=== PATIENT | male | born 1980 | race African-American/Black ===

== ENCOUNTER → 2021-06-09 13:42 | Outpatient (CLI) | payer OTHER, SELFPAY ==
--- NOTE | 2021-06-09 13:49 | DI.ECHO.S_ITS ---
[place] [facility]---------+ [facility] +---------+ : : [address] : : : : [id number] : : : : Phone: [phone]+ Echocardiogram Report + + :Name: GUICHO WARREN Study Date: 06/09/2021 Height: 71 in : :[facility] ReadingLocation: Weight: 200 lb : : Gender: Male BSA: 2.1 m2 : :: 1980 Age: 41 yrs BP: 149/96 mmHg: :Reason For Study: ENCOUNTER FOR GENERAL ADULT EXAMINATION : :Ordering Physician: GEOVANNA, : :JULIANN Performed By: Ana Taylor : :Referring: JULIANN AUSTIN : + + Interpretation Summary The left ventricle is normal in size and wall thickness. The ejection fraction is estimated to be 60-65%. Diastolic parameters suggest probable normal left ventricular diastolic function and normal filling pressures. The right ventricle is normal in size and function. Both atria are normal in size. There is mild mitral valve prolapse. There is prolapse of the posterior mitral valve leaflet(s). There is mild mitral regurgitation. There is no other significant valvular heart disease. The aortic root is normal size. Procedure: A two-dimensional transthoracic echocardiogram with color flow and Doppler was performed. The study quality was technically adequate. There is no prior echocardiogram noted for this patient. The patient was in sinus rhythm with heart rates between 77-86 bpm during the exam. Left Ventricle: The left ventricle is normal in size and wall thickness. The ejection fraction is estimated to be 60-65%. Diastolic parameters suggest probable normal left ventricular diastolic function and normal filling pressures. Right Ventricle: The right ventricle is normal in size and function. Atria: Both atria are normal in size. There is no Doppler evidence for an interatrial shunt. Mitral Valve: There is mild mitral valve prolapse. There is prolapse of the posterior mitral valve leaflet(s). There is mild mitral regurgitation. Aortic Valve: The aortic valve is trileaflet. The aortic valve opens well. There is no aortic valve stenosis. No aortic regurgitation is present. Tricuspid Valve: The tricuspid valve is normal in structure and function. There is mild tricuspid regurgitation. Pulmonary artery pressures cannot be estimated because of the lack of a measurable TR jet velocity but the IVC suggests a CVP of around 3 mmHg. Pulmonic Valve: The pulmonic valve leaflets are thin and pliable; valve motion is normal. There is no other significant valvular heart disease. There is a trace or physiologic amount of pulmonic regurgitation. Great Vessels: The aortic root is normal size. The dimensions of the ascending aorta are normal. The IVC is of normal diameter and collapses greater than 50% with a sniff. This suggests a low right atrial pressure of 3 mm Hg. Pericardium/ Pleura There is no pericardial effusion. There is no pleural effusion. MMode/2D Measurements & Calculations LVIDd: 4.7 cm LVOT diam: 2.4 cm LVIDs: 3.0 cm Ao root diam: 3.2 cm FS: 35.9 % asc Aorta Diam: 3.0 cm IVSd: 1.0 cm Ao Arch Diam (Prox Trans): 2.6 cm LVPWd: 0.98 cm LV canas. diameter/BSA (cm/m^2): 2.3 LV sys. diameter/BSA (cm/m^2): 1.4 LA A2 area: 19.1 cm2 RA long axis: 5.0 cm LA A4 area: 18.8 cm2 RA area: 14.4 cm2 LA length (vol): 4.8 cm RA vol: 35.4 ml LA vol: 62.8 ml RA : 16.8 ml/m2 LA vol index: 29.8 ml/m2 IVC diam: 1.0 cm RVD1 (basal): 4.5 cm TAPSE: 2.0 cm Doppler Measurements & Calculations Ao V2 max: 105.9 cm/sec LVOT Max Matthew: 86.2 cm/sec Ao V2 mean: 82.2 cm/sec LV V1 max P.0 mmHg Ao max P.5 mmHg LV V1 VTI: 14.7 cm Ao mean P.9 mmHg ELMO(I,D): 3.2 cm2 Ao V2 VTI: 20.9 cm ELMO(V,D): 3.7 cm2 sev ratio: 0.70 ELMO indexed to BSA (cm^2/m^2): 1.5 MV E max matthew: 47.4 cm/sec PA V2 max: 97.9 cm/sec MV A max matthew: 35.5 cm/sec PA V2 mean: 67.6 cm/sec MV E/A: 1.3 PA mean P.1 mmHg Med Peak E' Matthew: 6.5 cm/sec PA pr(Accel): 29.3 mmHg E/E' med: 7.3 Lat Peak E' Matthew: 8.4 cm/sec E/E' lat: 5.6 E/e' average: 6.5 MV dec time: 0.24 sec SV(LVOT): 66.4 ml Reading Physician:05:20 PM
== END ==
PROVIDERS: Referring Provider Physician Assistant; Visit Provider Physician Assistant
DX: Z00.00 Encounter for general adult medical examination without abnormal findings (principal); I08.1 Rheumatic disorders of both mitral and tricuspid valves
CPT/HCPCS: 93306

== ENCOUNTER → 2021-06-09 13:49 | Outpatient (CLI) | payer OTHER, SELFPAY ==
--- NOTE | 2021-06-09 13:55 | DI.RAD.S_ITS ---
PROCEDURE: XR CHEST 2V INDICATIONS: Encounter for general adult medical examination wi TECHNIQUE: 2 views of the chest were acquired. COMPARISON: None. FINDINGS: Surgical changes and devices: None. Lungs and pleura: Lungs are clear. No pleural effusions or pneumothorax. Mediastinum: Mediastinal contours are normal. Heart size is normal. Bones and chest wall: No suspicious bony abnormalities. Soft tissues appear unremarkable. IMPRESSION: No acute cardiopulmonary disease. Dictated by: Houston Dyer [facility] Interpreted: Yenifer Vargas MD on 06/09/2021 at 14:05 Transcribed by: MARCIN on 06/09/2021 at 14:05 Approved by: Yenifer Vargas M.D. on 06/09/2021 at 18:55
== END ==
PROVIDERS: Referring Provider Physician Assistant; Visit Provider Physician Assistant
DX: Z00.00 Encounter for general adult medical examination without abnormal findings (principal)
CPT/HCPCS: 71046

== ENCOUNTER → 2022-01-30 09:25 | Outpatient (CLI) | payer OTHER, SELFPAY ==
--- NOTE | 2022-01-30 09:29 | DI.RAD.S_ITS ---
PROCEDURE: XR LUMBAR SPINE MIN 4V INDICATIONS: BACK PAIN TECHNIQUE: 5 views of the lumbar spine were acquired, including bilateral oblique views. COMPARISON: None. FINDINGS: Bones: 5 nonrib-bearing vertebrae are present. There is normal bony alignment. No vertebral body compression fractures. No suspicious bony lesions. Mild multilevel facet hypertrophy is seen. Soft tissues: Overlying bowel gas pattern is normal. No suspicious soft tissue calcifications. Oblique images: No pars defects. IMPRESSION: No acute osseous abnormality. Mild multilevel spondylosis. If the symptoms persist, consider cross sectional imaging such as MRI or CT for further assessment. Dictated by: Arie Cortés M.D. on 01/30/2022 at 10:11 Approved by: Arie Cortés M.D. on 01/30/2022 at 10:12
== END ==
PROVIDERS: PCP Family Medicine; Referring Provider Physical Medicine & Rehabilitation; Visit Provider Physical Medicine & Rehabilitation
DX: M47.816 Spondylosis without myelopathy or radiculopathy, lumbar region (principal)
CPT/HCPCS: 72110

== ENCOUNTER → 2022-02-28 09:52 | Outpatient (CLI) | payer OTHER, SELFPAY ==
--- NOTE | 2022-02-28 09:56 | DI.MRI.S_ITS ---
PROCEDURE: MR LUMBAR SPINE WO CON INDICATIONS: Left L4-5 radiculopathy TECHNIQUE: Noncontrast sagittal T1 spin echo and T2 fast echo, sagittal STIR, and T2 fast spin echo through the lumbar spine. In cases with scoliosis, additional coronal T2 fast spin echo may be performed. COMPARISON: [facility], CR, XR LUMBAR SPINE MIN 4V, 01/30/2022, 9:20. [facility] Outside Film, MR, MR LUMBAR SPINE WITHOUT CONTRAST, 11/18/2019, 11:50. FINDINGS: Image quality: Excellent. Alignment and Curvature: There is normal bony alignment. Bone Marrow: Marrow is of normal overall signal. No acute vertebral body compression fractures. Spinal Cord: Conus medullaris terminates at the L1 level. Visualized cord demonstrates normal signal and size. Paraspinous Soft Tissues: No paravertebral masses. T12-L1: Normal appearance. L1-L2: Normal appearance. L2-L3: Normal appearance. L3-L4: The disc height and disk signal are well-preserved. Mild generalized disc bulge is seen. Mild facet joint hypertrophy is seen. Mild to moderate bilateral neural foraminal narrowing can be seen, left worse than right. Mild central canal narrowing is seen. When comparison is made with the prior images, these findings are similar. L4-L5: The disc height is relatively well preserved. Mild loss of disc signal can be seen. Mild to moderate disc bulge is seen. Mild to moderate facet hypertrophy is seen. There is moderate to severe bilateral neural foraminal narrowing seen. There is a degree of compression seen upon the exiting nerve roots. Mild to moderate central canal narrowing is seen. When comparison is made with the prior images, these findings are similar. L5-S1: The disc height and disk signal are well-preserved. Mild generalized disc bulge is seen. Mild facet joint hypertrophy is seen. There is mild left-sided and no significant right-sided neural foraminal narrowing. No significant central canal narrowing is seen. When comparison is made with the prior images, these findings are similar. IMPRESSION: Focal premature lower lumbar spine degenerative changes are seen. When compared to the outside 2019 images, the degenerative changes are not significantly progressed. Dictated by: Michele Rivera M.D. on 02/28/2022 at 10:50 Approved by: Michele Rivera M.D. on 02/28/2022 at 10:53
== END ==
PROVIDERS: PCP Family Medicine; Referring Provider Physical Medicine & Rehabilitation; Visit Provider Physical Medicine & Rehabilitation
DX: M47.26 Other spondylosis with radiculopathy, lumbar region; M47.27 Other spondylosis with radiculopathy, lumbosacral region
CPT/HCPCS: 72148

== ENCOUNTER → 2022-03-21 10:08 | Outpatient (CLI) | payer OTHER, SELFPAY ==
[2022-03-21 12:35] LABS: COVID19 -Nasal RAPID Negative (Negative)
== END ==
PROVIDERS: PCP Family Medicine; Visit Provider Physical Medicine & Rehabilitation
DX: Z20.822 Contact with and (suspected) exposure to COVID-19 (principal)
CPT/HCPCS: 87635; C9803

== ENCOUNTER 2022-03-23 12:56 | Outpatient (CLI) | payer OTHER, SELFPAY ==
[2022-03-23] VITALS (8 sets, daily range): BP systolic 150–164; BP diastolic 90–105; PULSE 75–81; RESP 10–22; O2SAT 98–100
--- NOTE | 2022-03-23 13:01 | DI.RAD.S_ITS ---
PROCEDURE: PAIN L/S TRANSFORAMINAL INJECT INDICATIONS: SPONDYLOSIS COMPARISON: [facility], MR, MR LUMBAR SPINE WO CON, 02/28/2022, 10:46. [facility], CR, XR LUMBAR SPINE MIN 4V, 01/30/2022, 9:20. FINDINGS: Fluoroscopic spot filming was performed to verify placement of spinal needles at the left L4-L5 level(s), as labeled on the films. Appropriate location(s) of the needle tip(s) was confirmed by injection of iodinated contrast. IMPRESSION: Fluoroscopy for pain management. Dictated by: Ghassan Denis M.D. on 03/23/2022 at 15:15 Approved by: Ghassan Denis M.D. on 03/23/2022 at 15:16
[2022-03-23] MEDS: IOPAMIDOL 15 ML VIAL 3 ML INJ (14:05)
[2022-03-23] MEDS: DEXAMETHASONE 10 MG/ML VIAL 20 MG INJ (14:06)
[2022-03-23] MEDS: BETAMETHASONE 30 MG/5 ML MDV 6 MG INJ (14:06)
[2022-03-23] MEDS: BUPIVACAINE 0.25% (PF) VIAL 2 ML INJ (14:06)
[2022-03-23] MEDS: MIDAZOLAM 5 MG/5 ML VIAL IV (14:08)
--- NOTE | 2022-03-23 14:18 | P.PCN_ITS ---
Date/Time/Diagnoses Date of procedure: 03/23/22 Time of procedure: 14:19 Pre-procedure diagnosis: 1. FORAMINAL STENOSIS WITH LE SYMPTOMS Post-procedure diagnosis: same Procedure Notes Procedure: 1. FLUOROSCOPICALLY GUIDED CONTRAST CONTROLLED TRANSFORAMINAL EPIDURAL STEROID INJECTION - LEFT L4/5 Indications: Johnson is referred by Dr. Ordoñez for treatment of Foraminal Stenosis with Left LE Symptoms Physician: Marcus Palacio Total Fluoroscopy time (seconds): 18 Total sedation minutes: 15 Complications: none Procedure in detail & Post-procedure care: FINDINGS Foraminal Nerve Root Compression secondary to disc disease and facet hypertrophy DESCRIPTION OF PROCEDURE Following review of allergy and review of potential side effects and complications, including, but not necessarily limited to, infection, allergic reaction, local tissue breakdown, stroke, temporary or permanent nerve injury, paralysis, and possible , the patient indicated that the patient understood and agreed to proceed. An informed consent document was signed by the patient, witnessed by a nurse, and placed in the patient's chart. Additionally, other treatment options including medications, modalities, and physical therapy were reviewed with the patient. After review of previous anaesthesic history and IV conscious sedation the patient was deemed safe to proceed with today?s procedure with IV conscious sedation as ASA class II designation. Safety time-out was performed to confirm patient ID, procedure to be performed and site of procedure. IV sedation was accomplished with a combination of 3mg of Versed administered by the RN after DO order, titrated to patient comfort during the course of the procedure while the patient remained responsive to all verbal commands In the prone position following sterile prep and drape of the lumbar region, the left L4/5 posterior neuroforamen was identified fluoroscopically. The skin was anesthetized via a 25-gauge 1.5-inch needle with 1% lidocaine solution. At this point, a 25-gauge 3.5-inch spinal needle was atraumatically introduced and advanced under fluoroscopic guidance through the posterior left L4/5 neuroforamen to approximately the anterior aspect of the canal. Depth was confirmed on lateral view. Following negative aspiration, injection of approximately 1.5 cc of Isovue 200 under live fluoroscopy in the AP view confirmed excellent flow along the nerve root, into the epidural space without vascular or intrathecal uptake observed Radiological data, including multiple fluoroscopic views of the lumbosacral spine, reveal a spinal needle at the left L4/5 posterior neuroforamen. Subsequent views show flow of contrast material flowing superiorly and inferiorly along the nerve root confirming epidural flow. Subsequently, a test dose of 1.5 cc of 1% lidocaine solution was administered and patient was observed for two minutes for signs or symptoms of complications, including abdominal pain, shortness of breath, bilateral upper or lower extremity weakness, nausea and vomiting, prior to steroid injection. At this point, a total of 3cc or 20mg of dexamethasone and 6mg of betamethasone was injected without incident. The procedure tolerated the procedure well without signs or symptoms of complications prior to transfer to the recovery area continued monitoring without incident. The patient was then transferred to the recovery area where they were observed for an appropriate time after the injection. The patient reported a VAS score of 7 prior to the procedure and a post- procedure VAS of 0. POST OP INSTRUCTIONS The patient was provided a Pain Log to continue to record their response to the target-specific procedure prior to follow-up visit with their referring physician. Additionally, specific post-injection care instructions and a contact number to our office were provided if concerns arise regarding possible complications associated with the procedure are suspected.
== END 2022-03-23 14:39 | disposition home or self-care (01) ==
LOC: RAD 13:00
PROVIDERS: PCP Family Medicine; Referring Provider Physical Medicine & Rehabilitation; Visit Provider Physical Medicine & Rehabilitation
DX: M48.061 Spinal stenosis, lumbar region without neurogenic claudication (principal); M51.16 Intervertebral disc disorders with radiculopathy, lumbar region
CPT/HCPCS: 64483; 99152; J0702; J1100; J2250

== ENCOUNTER → 2022-06-07 09:31 | Outpatient (CLI) | payer OTHER, SELFPAY ==
--- NOTE | 2022-06-07 09:32 | DI.US.S_ITS ---
PROCEDURE: US SCROTUM INDICATIONS: 42-year-old male reports palpable fullness and pain in the left scrotum times several years. History of surgical varicocele repair 2017 TECHNIQUE: Real-time scanning was performed of the scrotum and testicles, with image documentation. Color and pulse Doppler interrogation was performed of both testicles. COMPARISON: None. FINDINGS: Right: Testicle is normal in size at 3.4 x 1.8 x 2.1 cm, and homogenous in echotexture other than several microcalcifications. Epididymis is normal in overall size and morphology. No hydrocele or varicoceles. Overlying scrotal skin is normal in thickness. Left: Testicle is normal in size at 3.4 x 1.6 x 2.0 cm, and homogeneous in echotexture other than several microcalcifications. 2 cm testicular cyst noted.. Epididymis is normal in overall size and morphology. No hydrocele . Positive varicocele. Overlying scrotal skin is normal in thickness. Doppler: Color and pulse Doppler demonstrate normal and symmetric arterial flow in both testicles. IMPRESSION: Positive left-sided varicocele. Bilateral testicular microlithiasis and small left testicular 2 mm cyst Approved by: Jamison Fowler M.D. on 06/07/2022 at 12:14
== END ==
PROVIDERS: PCP Family Medicine; Referring Provider Specialist; Visit Provider Specialist
DX: I86.1 Scrotal varices (principal); N44.2 Benign cyst of testis; N50.89 Other specified disorders of the male genital organs
CPT/HCPCS: 76870

== ENCOUNTER → 2022-07-10 10:10 | Outpatient (CLI) | payer OTHER, SELFPAY ==
[2022-07-10 10:49] LABS: COVID19 -Nasal RAPID Negative (Negative)
== END ==
PROVIDERS: PCP Family Medicine; Referring Provider Physical Medicine & Rehabilitation; Visit Provider Physical Medicine & Rehabilitation
DX: Z20.822 Contact with and (suspected) exposure to COVID-19 (principal)
CPT/HCPCS: 87635; C9803

== ENCOUNTER 2022-07-11 09:18 | Outpatient (CLI) | payer OTHER, SELFPAY ==
[2022-07-11] VITALS (8 sets, daily range): BP systolic 122–143; BP diastolic 69–95; PULSE 71–86; RESP 12–22; TEMP 36.4; O2SAT 99–100
--- NOTE | 2022-07-11 09:19 | DI.RAD.S_ITS ---
PROCEDURE: PAIN L/S TRANSFORAMINAL INJECT INDICATIONS: SPONDYLOSIS COMPARISON: [facility], , PAIN L/S TRANSFORAMINAL INJECT, 03/23/2022, 14:04. FINDINGS: Fluoroscopic spot filming was performed to verify placement of a spinal needle at the L4-L5 level, as labeled on the films. Appropriate location of the needle tip was confirmed by injection of iodinated contrast. IMPRESSION: Intraprocedural examination within normal limits. Dictated by: Michele Rivera M.D. on 07/11/2022 at 13:29 Approved by: Michele Rivera M.D. on 07/11/2022 at 13:29
[2022-07-11] MEDS: MIDAZOLAM 2 MG/2 ML VIAL IV (11:04)
[2022-07-11] MEDS: IOPAMIDOL 15 ML VIAL 3 ML INJ (11:06)
[2022-07-11] MEDS: BUPIVACAINE 0.25% (PF) VIAL 2 ML INJ (11:07)
[2022-07-11] MEDS: BETAMETHASONE 30 MG/5 ML MDV 6 MG INJ (11:07)
[2022-07-11] MEDS: DEXAMETHASONE 10 MG/ML VIAL 20 MG INJ (11:07)
--- NOTE | 2022-07-11 11:16 | P.PCN_ITS ---
Date/Time/Diagnoses Date of procedure: 07/11/22 Time of procedure: 11:16 Pre-procedure diagnosis: 1. FORAMINAL STENOSIS WITH LE SYMPTOMS Post-procedure diagnosis: same Procedure Notes Procedure: 1. FLUOROSCOPICALLY GUIDED CONTRAST CONTROLLED TRANSFORAMINAL EPIDURAL STEROID INJECTION - RIGHT L4/5 TFESI Indications: Tonya referred by Dr. Ordoñez for treatment of Foraminal Stenosis with Right LE Symptoms Physician: Marcus Palacio Total Fluoroscopy time (seconds): 8 Total sedation minutes: 8 Complications: none Procedure in detail & Post-procedure care: FINDINGS Foraminal Nerve Root Compression secondary to disc disease and facet hypertrophy DESCRIPTION OF PROCEDURE Following review of allergy and review of potential side effects and complications, including, but not necessarily limited to, infection, allergic reaction, local tissue breakdown, stroke, temporary or permanent nerve injury, paralysis, and possible , the patient indicated that the patient understood and agreed to proceed. An informed consent document was signed by the patient, witnessed by a nurse, and placed in the patient's chart. Additionally, other treatment options including medications, modalities, and physical therapy were reviewed with the patient. After review of previous anaesthesic history and IV conscious sedation the patient was deemed safe to proceed with today?s procedure with IV conscious sedation as ASA class II designation. Safety time-out was performed to confirm patient ID, procedure to be performed and site of procedure. IV sedation was accomplished with a combination of 2mg of Versed was administered by the RN after DO order, titrated to patient comfort during the course of the procedure while the patient remained responsive to all verbal commands In the prone position following sterile prep and drape of the lumbar region, the right L4/5 posterior neuroforamen was identified fluoroscopically. The skin was anesthetized via a 25-gauge 1.5-inch needle with 1% lidocaine solution. At this point, a 25-gauge 3.5-inch spinal needle was atraumatically introduced and advanced under fluoroscopic guidance through the posterior right L4/5 neuroforamen to approximately the anterior aspect of the canal. Depth was confirmed on lateral view. Following negative aspiration, injection of approximately 1.5cc of Isovue 200 under live fluoroscopy in the AP view confir med excellent flow along the nerve root, into the epidural space without vascular or intrathecal uptake observed Radiological data, including multiple fluoroscopic views of the lumbosacral spine, reveal a spinal needle at the right L4/5 posterior neuroforamen. Subsequent views show flow of contrast material flowing superiorly and inferiorly along the nerve root confirming epidural flow. Subsequently, a test dose of 1.5 cc of 1% lidocaine solution was administered and patient was observed for two minutes for signs or symptoms of complications, including abdominal pain, shortness of breath, bilateral upper or lower extremity weakness, nausea and vomiting, prior to steroid injection. At this point, a total of 3cc or 20mg of dexamethasone and 6mg of betamethasone was injected without incident. The procedure tolerated the procedure well without signs or symptoms of complications prior to transfer to the recovery area continued monitoring without incident. The patient was then transferred to the recovery area where they were observed for an appropriate time after the injection. The patient reported a VAS score of 7 prior to the procedure and a post- procedure VAS of 0. POST OP INSTRUCTIONS The patient was provided a Pain Log to continue to record their response to the target-specific procedure prior to follow-up visit with their referring phys ician. Additionally, specific post-injection care instructions and a contact number to our office were provided if concerns arise regarding possible complications associated with the procedure are suspected.
== END 2022-07-11 11:35 | disposition home or self-care (01) ==
LOC: RAD 09:19
PROVIDERS: PCP Family Medicine; Referring Provider Physical Medicine & Rehabilitation; Visit Provider Physical Medicine & Rehabilitation
DX: M48.061 Spinal stenosis, lumbar region without neurogenic claudication (principal); M51.16 Intervertebral disc disorders with radiculopathy, lumbar region
CPT/HCPCS: 64483; J0702; J1100; J2250; J3490

== ENCOUNTER 2023-04-12 15:04 | Outpatient (CLI) | payer OTHER, SELFPAY ==
[2023-04-12] VITALS (10 sets, daily range): BP systolic 127–159; BP diastolic 66–88; PULSE 76–88; RESP 12–18; TEMP 36.4; O2SAT 95–100
--- NOTE | 2023-04-12 15:06 | DI.RAD.S_ITS ---
PROCEDURE: PAIN L/S FACET INJ/BLK 1ST JADIEL COMPARISON: None. INDICATIONS: SPONDYLOSIS FINDINGS: Fluoroscopic spot filming was performed to verify placement of spinal needles at the right L4-5 and right L5-S1 level(s), as labeled on the films. Appropriate location(s) of the needle tip(s) was confirmed by injection of iodinated contrast. IMPRESSION: Fluoroscopic guidance for lumbar facet joint injections. Please see procedural note for further details. Dictated by: Bobby Velasquez M.D. on 04/12/2023 at 16:29 Approved by: Bobby Velasquez M.D. on 04/12/2023 at 16:30
[2023-04-12] MEDS: MIDAZOLAM 2 MG/2 ML VIAL IV ×2 (15:52→16:00)
[2023-04-12] MEDS: IOPAMIDOL 15 ML VIAL 3 ML INJ (15:55)
[2023-04-12] MEDS: BETAMETHASONE 30 MG/5 ML MDV 12 MG INJ (15:55)
[2023-04-12] MEDS: BUPIVACAINE 0.5% (PF) 10 ML VIAL 5 ML INJ (15:55)
[2023-04-12] MEDS: LIDOCAINE 1% 20 ML 5 ML INJ (15:58)
--- NOTE | 2023-04-12 16:12 | P.PCN_ITS ---
Date/Time/Diagnoses Date of procedure: 04/12/23 Time of procedure: 16:12 Pre-procedure diagnosis: 1. FACET ARTHROPATHY 2. AXIAL LBP 3. MULTILEVEL DDD Post-procedure diagnosis: same Procedure Notes Procedure: 1. FLUOROSCOPICALLY GUIDED CONTRAST CONTROLLED FACET JOINT INJECTIONS BILATERAL L4/5, L5/S1 Indications: Johnson is referred by Dr. Ordoñez for treatment of Axial LBP Physician: Marcus Palacio Total Fluoroscopy time (seconds): 10 Total sedation minutes: 13 Complications: none Procedure in detail & Post-procedure care: FINDINGS Multilevel Facet Arthropathy with Clinically significant axial LBP DESCRIPTION OF PROCEDURE Fluoroscopically guided, contrast-controlled bilateral L4/5, L5/S1 facet joint injections. Following review of allergy and review of potential side effects and complications, including, but not necessarily limited to, infection, allergic reaction, local tissue breakdown, stroke, temporary or permanent nerve injury, paralysis, and possible , the patient indicated that the patient understood and agreed to proceed. An informed consent document was signed by the patient, witnessed by a nurse, and placed in the patient's chart. Additionally, other treatment options including medications, modalities, and physical therapy were reviewed with the patient. After review of previous anaesthesic history and IV conscious sedation the patient was deemed safe to proceed with today?s procedure with IV conscious sedation as ASA class II designation. Safety time-out was performed to confirm patient ID, procedure to be performed and site of procedure. IV sedation was accomplished with a combination of 4mg of Versed was administered by the RN after DO order, titrated to patient comfort during the course of the procedure while the patient remained responsive to all verbal commands In the prone position, following sterile prep and drape of the lumbar region, the posterior aspect of the L4/5, L5/S1 facet joints were identified fluoroscopically. The skin was anesthetized via a 25-gauge 1.5inch needle with 1% lidocaine solution into the corresponding facet joints. At this point, a 22- gauge 3.5-inch spinal needle was atraumatically introduced and advanced under fluoroscopic guidance into the corresponding facet joints. Following negative aspiration, injections of approximately 0.2cc of Isovue 200 confirmed interarticular placement without vascular uptake. The identical procedure was then performed at the L4/5, L5/S1 facet joints on the left. Radiological data, including multiple fluoroscopic views of the lumbosacral spine, reveal a spinal needle at the L4/5, L5/S1 facet joints bilaterally. Subsequent views show flow of contrast material both superiorly and inferiorly within the joint space without vascular or intrathecal uptake. At this point, a total of 0.5cc including a mixture of 0.25cc Marcaine and 0.25cc betamethasone was injected without complication into each of the corresponding facet joints. The patient tolerated the procedure well without signs or symptoms of complications prior to transfer to the recovery area continued monitoring without incident. The patient was then transferred to the recovery area where they were observed for an appropriate period of time after the injection. The patient reported a VAS score of 7 prior to the procedure and a post- procedure VAS of 0. POST OP INSTRUCTIONS The patient was provided a Pain Log to continue to record their response to the target-specific procedure prior to follow-up visit with their referring physician. Additionally, specific post-injection care instructions and a contact number to our office were provided if concerns arise regarding possible complications associated with the procedure are suspected.
== END 2023-04-12 16:30 | disposition home or self-care (01) ==
LOC: RAD 15:05
PROVIDERS: PCP Family Medicine; Referring Provider Physical Medicine & Rehabilitation; Visit Provider Physical Medicine & Rehabilitation
DX: M47.9 Spondylosis, unspecified (principal)
CPT/HCPCS: 64493; 64494; 99152; J0702; J2250

== ENCOUNTER 2023-06-21 14:15 | Outpatient (CLI) | payer OTHER, SELFPAY ==
[2023-06-21] VITALS (8 sets, daily range): BP systolic 117–140; BP diastolic 68–90; PULSE 70–86; RESP 11–18; TEMP 36.6; O2SAT 98–100
--- NOTE | 2023-06-21 14:16 | DI.RAD.S_ITS ---
PROCEDURE: PAIN L/S FACET INJ/BLK 1ST JADIEL COMPARISON: [facility], , PAIN L/S FACET INJ/BLK 1ST JADIEL, 04/12/2023, 15:55. INDICATIONS: SPONDYLOSIS FINDINGS: Fluoroscopic spot filming was performed to verify placement of spinal needles on both sides at the L4, L5, and S1 levels, as labeled on the films. Appropriate location of the needle tips was confirmed by injection of iodinated contrast. IMPRESSION: Intraprocedural examination demonstrating appropriate positions of the needles. Dictated by: Michele Rivera M.D. on 06/21/2023 at 15:42 Approved by: Michele Rivera M.D. on 06/21/2023 at 15:42
[2023-06-21] MEDS: MIDAZOLAM 2 MG/2 ML VIAL IV (15:20)
[2023-06-21] MEDS: LIDOCAINE 1% 20 ML 5 ML INJ (15:28)
[2023-06-21] MEDS: BUPIVACAINE 0.5% (PF) 10 ML VIAL 5 ML INJ (15:28)
[2023-06-21] MEDS: IOPAMIDOL 15 ML VIAL 3 ML INJ (15:28)
--- NOTE | 2023-06-21 15:41 | PM.PROC.IR.1 ---
Date/Time/Diagnoses Date of procedure: 06/21/23 Time of procedure: 15:42 Pre-procedure diagnosis: 1. FACET ARTHROPATHY Post-procedure diagnosis: same Procedure Notes Procedure: 1. BILATERAL- L4, L5 and S1 DIAGNOSTIC MB BLOCKS with LA Anesthetic Indications: Johnson is referred by Dr. Ordoñez for treatment of Bilateral Axial LBP. Physician: Marcus Palacio Total Fluoroscopy time (seconds): 16 Total sedation minutes: 17 Complications: none Procedure in detail & Post-procedure care: DESCRIPTION OF PROCEDURE Fluoroscopically guided, contrast-controlled bilateral L4, L5 and S1 medial branch blocks with 0.5cc of 0.5% Marcaine. Following review of allergy and review of potential side effects and complications, including, but not necessarily limited to, infection, allergic reaction, local tissue breakdown, nerve injury, paralysis, stroke and possible , the patient indicated that the patient understood and agreed to proceed. An informed consent document was signed by the patient, witnessed by a nurse, and placed in the patient's chart. After review of previous anaesthesic history and IV conscious sedation the patient was deemed safe to proceed with today's procedure with IV conscious sedation as ASA class II designation. Safety time-out was performed to confirm patient ID, procedure to be performed and site of procedure. IV sedation was accomplished with a combination of 2mg of Versed was administered by the RN after DO order, titrated to patient comfort during the course of the procedure while the patient remained responsive to all verbal commands In the prone position, following sterile prep and drape of the lumbar region, the right L4, L5 and S1 anatomical location of the medial branch of the dorsal ramus was identified fluoroscopically. Subsequently an anesthetic skin wheal using 1% lidocaine solution was initiated at each of the anatomical spots. Subsequently then a 22-gauge 3.5-inch spinal needle was atraumatically introduced and advanced under fluoroscopic guidance at each of the corresponding sites at the right L4, L5 and S1 MB. After negative aspiration, 0.2cc of Isovue 200 was injected, confirming placement without vascular or intrathecal uptake. Subsequently then 0.5cc of 0.5% Marcaine solution was injected at each of the corresponding sites at the right L4, L5 and S1 medial branch locations. The identical procedure was replicated on the left. The patient tolerated the procedure well without signs or symptoms of complications prior to transfer to the recovery area continued monitoring without incident. Post-procedure, the patient was monitored initiating provocative activities to measure the amount of relief from block of the facetogenic pain. The patient reported a VAS of 7 prior to the procedure and a post-procedure VAS of 1. It has been a pleasure to assist in the diagnostic and therapeutic care of your patient. POST OP INSTRUCTIONS The patient was provided with a Pain Log to complete over the next several hours and subsequent days prior to the patient's follow up with the ordering physician. If the patient has wireless sales associate relief to the solution applied, then they may be a candidate for medial branch rhizotomy. The patient is aware, was provided, once again, with a Pain Log and will follow up with the referring physician for review and clinical correlation
== END 2023-06-21 15:57 | disposition home or self-care (01) ==
PROVIDERS: PCP Family Medicine; Referring Provider Physical Medicine & Rehabilitation; Visit Provider Physical Medicine & Rehabilitation
DX: M47.816 Spondylosis without myelopathy or radiculopathy, lumbar region (principal); M47.817 Spondylosis without myelopathy or radiculopathy, lumbosacral region
CPT/HCPCS: 64493; 64494; 99152; J2250

== ENCOUNTER 2024-05-06 15:17 | Outpatient (CLI) | payer OTHER, SELFPAY ==
[2024-05-06] VITALS (9 sets, daily range): BP systolic 114–130; BP diastolic 59–90; PULSE 66–80; RESP 8–18; TEMP 36.8; O2SAT 97–100
--- NOTE | 2024-05-06 16:00 | DI.RAD.S_ITS ---
PROCEDURE: PAIN L/S FACET INJ/BLK 1ST JADIEL INDICATIONS: Bilateral L4, L5 and S1 MB SA COMPARISON: [facility], XA, PAIN L/S FACET INJ/BLK 1ST JADIEL, 06/21/2023, 15:24. [facility], XA, PAIN L/S FACET INJ/BLK 1ST JADIEL, 04/12/2023, 15:55. FINDINGS: Fluoroscopic spot filming was performed to verify placement of spinal needles at the L4-S1 level(s), as labeled on the films. Appropriate location(s) of the needle tip(s) was confirmed by injection of iodinated contrast. IMPRESSION: Fluoroscopic guided L4-S1 facet injection. Dictated by: Jennie Le M.D. on 05/07/2024 at 9:56 Approved by: Jennie Le M.D. on 05/07/2024 at 9:56
[2024-05-06] MEDS: MIDAZOLAM 2 MG/2 ML VIAL IV (16:49)
[2024-05-06] MEDS: LIDOCAINE 1% 20 ML 5 ML INJ (16:55)
[2024-05-06] MEDS: iopamidoL 15 ML VIAL 3 ML INJ (16:55)
[2024-05-06] MEDS: LIDOCAINE 2% INJ SDV 5ML 10 ML INJ (16:56)
--- NOTE | 2024-05-06 17:09 | PM.PROC.IR.1 ---
Date/Time/Diagnoses Date of procedure: 05/06/24 Time of procedure: 17:09 Pre-procedure diagnosis: 1. FACET ARTHROPATHY Post-procedure diagnosis: same Procedure Notes Procedure: 1. BILATERAL- L4, L5 and S1 DIAGNOSTIC MB BLOCKS with SA Anesthetic Indications: Johnson is referred by Dr. Ordoñez for treatment of Bilateral Axial LBP. Physician: Marcus Palacio Total Fluoroscopy time (seconds): 8 Total sedation minutes: 16 Complications: none Procedure in detail & Post-procedure care: DESCRIPTION OF PROCEDURE Fluoroscopically guided, contrast-controlled bilateral L4, L5 and S1 medial branch blocks with 0.5cc of 2% Lidocaine. Following review of allergy and review of potential side effects and complications, including, but not necessarily limited to, infection, allergic reaction, local tissue breakdown, nerve injury, paralysis, stroke and possible , the patient indicated that the patient understood and agreed to proceed. An informed consent document was signed by the patient, witnessed by a nurse, and placed in the patient's chart. After review of previous anaesthesic history and IV conscious sedation the patient was deemed safe to proceed with today's procedure with IV conscious sedation as ASA class II designation. Safety time-out was performed to confirm patient ID, procedure to be performed and site of procedure. IV sedation was accomplished with a combination of 3mg of Versed was administered by the RN after DO order, titrated to patient comfort during the course of the procedure while the patient remained responsive to all verbal commands In the prone position, following sterile prep and drape of the lumbar region, the right L4, L5 and S1 anatomical location of the medial branch of the dorsal ramus was identified fluoroscopically. Subsequently an anesthetic skin wheal using 1% lidocaine solution was initiated at each of the anatomical spots. Subsequently then a 22-gauge 3.5-inch spinal needle was atraumatically introduced and advanced under fluoroscopic guidance at each of the corresponding sites at the right L4, L5 and S1 MB. After negative aspiration, 0.2cc of Isovue 200 was injected, confirming placement without vascular or intrathecal uptake. Subsequently then 0.5cc of 2% Lidocaine solution was injected at each of the corresponding sites at the right L4, L5 and S1 medial branch locations. The identical procedure was replicated on the left. The patient tolerated the procedure well without signs or symptoms of complications prior to transfer to the recovery area continued monitoring without incident. Post-procedure, the patient was monitored initiating provocative activities to measure the amount of relief from block of the facetogenic pain. The patient reported a VAS of 7 prior to the procedure and a post-procedure VAS of 1. It has been a pleasure to assist in the diagnostic and therapeutic care of your patient. POST OP INSTRUCTIONS The patient was provided with a Pain Log to complete over the next several hours and subsequent days prior to the patient's follow up with the ordering physician. If the patient has research microbiologist relief to the solution applied, then they may be a candidate for medial branch rhizotomy. The patient is aware, was provided, once again, with a Pain Log and will follow up with the referring physician for review and clinical correlation
--- NOTE | 2024-05-07 15:14 | PC.NURSE ---
1514 post procedure call made. No answer. patient advised to call the clinic if he has any questions or concerns at the number that is on his discharge form.
== END 2024-05-06 17:20 | disposition home or self-care (01) ==
LOC: RAD 15:17
PROVIDERS: PCP Family Medicine; Referring Provider Physical Medicine & Rehabilitation; Visit Provider Physical Medicine & Rehabilitation
DX: M47.816 Spondylosis without myelopathy or radiculopathy, lumbar region (principal); M47.817 Spondylosis without myelopathy or radiculopathy, lumbosacral region
CPT/HCPCS: 64493; 64494; 99152; J2250

== ENCOUNTER 2024-07-03 10:43 | Outpatient (CLI) | payer OTHER, SELFPAY ==
[2024-07-03] VITALS (20 sets, daily range): BP systolic 92–162; BP diastolic 49–112; PULSE 60–85; RESP 9–18; TEMP 36; O2SAT 97–100
--- NOTE | 2024-07-03 11:00 | DI.RAD.S_ITS ---
PROCEDURE: PAIN L/S MED/LAT N RFA BILAT INDICATIONS: BILATERAL L4, L5, S1 MB RFA COMPARISON: None. FINDINGS: Fluoroscopic spot filming was performed to verify placement of spinal needles at the bilateral L4, L5, and S1 level(s), as labeled on the films. Appropriate location(s) of the needle tip(s) was confirmed by injection of iodinated contrast. IMPRESSION: Intraoperative fluoroscopy for bilateral L4 through S1 medial branch RFA. Dictated by: Rosa Oliveira M.D. on 07/04/2024 at 20:04 Approved by: Rosa Oliveira M.D. on 07/04/2024 at 20:05
[2024-07-03] MEDS: MIDAZOLAM 2 MG/2 ML VIAL 1 MG IV (11:24)
[2024-07-03] MEDS: SODIUM CHLORIDE 0.9% 500 ML 1000 ML IV (11:24)
[2024-07-03] MEDS: LIDOCAINE 1% 20 ML 5 ML INJ (11:30)
[2024-07-03] MEDS: BUPIVACAINE 0.5% (PF) 10 ML VIAL 5 ML INJ (11:30)
[2024-07-03] MEDS: LIDOCAINE 1% (PF) 5 ML INJ (11:57)
--- NOTE | 2024-07-03 12:11 | P.PCN_ITS ---
Date/Time/Diagnoses Date of procedure: 07/03/24 Time of procedure: 12:11 Pre-procedure diagnosis: 1. RECALCITRANT FACET ARTHROPATHY Post-procedure diagnosis: same Procedure Notes Procedure: 1. BILATERAL L4 AND L5 MEDIAL BRANCH RADIOFREQUENCY NEUROTOMY AND S1 DORSAL RAMUS BRANCH RADIOFREQUENCY NEUROTOMY Indications: Johnson is referred by Dr. Ordoñez for treatment of facet arthropathy. Physician: Marcus Palacio Total Fluoroscopy time (seconds): 18 Total sedation minutes: 40 Complications: none Procedure in detail & Post-procedure care: DESCRIPTION OF PROCEDURE Bilateral L4 and L5 medial branch radiofrequency neurotomy and bilateral S1 dorsal ramus radiofrequency neurotomy under fluoroscopy with conscious sedation. The patient is well known to this clinic having undergone previous facet injections with good but temporary relief. The patient has experienced appropriate, concordant relief with previous facet and median branch blocks but the patient's pain has been recalcitrant to further conservative measures. Therefore, based upon the patient's relief and persistent symptoms, the patient is considered an appropriate candidate for facet rhizotomy. All of the patient's questions regarding the risks versus benefits of the procedure, including, but not limited to, bleeding, infection, temporary as well as lasting nerve injury, paralysis, stroke, and , as well treatment alternatives were answered to satisfaction. After obtaining informed consent, denial of pertinent drug allergies, as well as being made aware of the potential risks of bleeding, infection, spinal cord trauma, paralysis, temporary and permanent nerve damage, seizure, stroke, and possible , the patient was brought to the fluoroscopy suite and positioned prone on the fluoroscopy table. The lumbar region was prepped in usual sterile fashion and covered with a fenestrated drape in the usual sterile fashion. Appropriate monitors applied including pulse oximeter, pulse, and blood pressure for regular monitoring throughout the procedure. After review of previous anaesthesic history and IV conscious sedation the patient was deemed safe to proceed with today's procedure with IV conscious sedation as ASA class II designation. Safety time-out was performed to confirm patient ID, procedure to be performed and site of procedure. IV sedation was accomplished with a combination of 2mg of Versed administered by the RN after DO order, titrated to patient comfort during the course of the procedure while the patient remained responsive to all verbal commands. After local infiltration using 1% lidocaine, under fluoroscopic guidance, a 10- cm RF insulated needle with a 10-mm active tip was positioned parallel to the junction of the right sacral ala and the superior articulating process where the S1 dorsal ramus resides. Needle placement was confirmed with motor stimulation of .5v on the right which produced local stimulation without radicular component. The stimulation was then increased to 2v with, once again, only local multifidus stimulation without radicular component. The needle was then removed and the identical procedure was performed along the length of the right L5 medial branch with motor stimulation at .7v on the right. The identical procedure was once again performed along the length of the right L4 medial branch with motor stimulation of .5v on the right. The medial branches were then anesthetised with 0.5% Marcaine. This was then followed by two discreet lesions performed at 80 degrees Celsius for 90 seconds each. The identical procedure was repeated on the left. The patient tolerated the procedure well without signs or symptoms of complications prior to transfer to the recovery area continued monitoring without incident. The patient was then transferred to the recovery area where they were observed for an appropriate period of time after the injection. The patient reported a VAS score of 9 prior to the procedure and a post-procedure VAS of 0. POST OP INSTRUCTIONS The patient was provided a Pain Log to continue to record the patient's response to the target-specific procedure prior to the patient's follow-up visit with the referring physician. Additionally, specific post-injection care instructions and a contact number to our office were provided if concerns arise regarding possible complications associated with the procedure are suspected.
[2024-07-03] MEDS: HYDROCODONE/ACET 5/325 TABLET 1 TAB PO (12:30)
--- NOTE | 2024-07-03 14:21 | PC.NURSE ---
Patient returned to post procedure room noted to have increased pain 8/10 to bilateral lower back described as tightness. Applied warm blanket, pt declines feet up. Patient stood at chair continues to have discomfort denies any pain or weakness to BLE but just pain localized around injection sites. MD down to assess pt continues to have pain 7-8/10 see pain chart. Received verbal order to administer 1 tab Hydrocodone 5/325 orally. See MAR. Patient continues to decline feet up but is restless, ice pack applied. Patient reports that the he feels the ice was helping, appears less restless and less facial grimacing. brought back to room, patient stood and walked around the room and reports he still has pain 7/10 but that is is better standing and walking then sitting down. Patient states I am starting to feel better and will be good to go home and walk around, Denies any weakness to BLE, denies any dizziness or lightheaded. Pt and spouse informed of tramadol RX sent to [facility] per Dr Palacio. Patient ambulated from procedure room to car at main entrance with out any difficulties. Pt and instructed to call clinic with any questions or concerns. Spoke with Dee LARES at DR Gamble office with update on pt and d/c home.
== END 2024-07-03 13:08 | disposition home or self-care (01) ==
LOC: RAD 10:43
PROVIDERS: PCP Family Medicine; Referring Provider Physical Medicine & Rehabilitation; Visit Provider Physical Medicine & Rehabilitation
DX: M47.816 Spondylosis without myelopathy or radiculopathy, lumbar region (principal); M47.817 Spondylosis without myelopathy or radiculopathy, lumbosacral region
CPT/HCPCS: 64635; 64636; 99152; 99153; J2250

== ENCOUNTER 2025-01-20 11:55 | Outpatient (CLI) | payer OTHER, SELFPAY ==
[2025-01-20] VITALS (8 sets, daily range): BP systolic 127–153; BP diastolic 62–83; PULSE 61–77; RESP 14–16; TEMP 36.7; O2SAT 98–100
--- NOTE | 2025-01-20 11:58 | DI.RAD.S_ITS ---
PROCEDURE: PAIN L INTERLAMINAR/CAUDAL INJ INDICATIONS: L 4/5 TL JAM COMPARISON: None. FINDINGS/IMPRESSION: Fluoroscopic spot filming was performed to verify placement of spinal needles at the L4-L5 level(s), as labeled on the films. Appropriate location(s) of the needle tip(s) was confirmed by injection of iodinated contrast. Dictated by: Paige Chavarria MD, PhD on 01/21/2025 at 10:20 Approved by: Paige Chavarria MD, PhD on 01/21/2025 at 10:25
[2025-01-20] MEDS: MIDAZOLAM 2 MG/2 ML VIAL IV (13:54)
[2025-01-20] MEDS: BUPIVACAINE 0.25% (PF) VIAL 2 ML INJ (14:02)
[2025-01-20] MEDS: DEXAMETHASONE 10 MG/ML VIAL 20 MG INJ (14:03)
[2025-01-20] MEDS: iopamidoL 15 ML VIAL 3 ML INJ (14:03)
[2025-01-20] MEDS: BETAMETHASONE 30 MG/5 ML MDV 12 MG INJ (14:04)
--- NOTE | 2025-01-20 14:12 | P.PCN_ITS ---
Date/Time/Diagnoses Date of procedure: 01/20/25 Time of procedure: 14:13 Pre-procedure diagnosis: 1. HNP WITH RADICULAR FEATURES, 2. MULTILEVEL CENTRAL STENOSIS, Post-procedure diagnosis: same Procedure Notes Procedure: 1. FLUOROSCOPICALLY GUIDED CONTRAST CONTROLLED INTERLAMINAR EPIDURAL STEROID INJECTION - L5/S1 Indications: oJhnson is referred by Dr. Ordoñez for treatment of Bilateral Foraminal Stenosis L>R LE symptoms. Physician: Marcus Palacio Total Fluoroscopy time (seconds): 8 Total sedation minutes: 12 Complications: none Procedure in detail & Post-procedure care: FINDINGS Multilevel Central Spinal Stenosis with Nerve Root Compression DESCRIPTION OF PROCEDURE Fluoroscopically guided, contrast-controlled L5/S1 translaminar epidural steroid injection. Following review of allergy and review of potential side effects and complications, including, but not necessarily limited to, infection, allergic reaction, local tissue breakdown, temporary as well as permanent nerve injury, paralysis, stroke and possible , the patient indicated that the patient understood and agreed to proceed. An informed consent document was signed by the patient, witnessed by a nurse, and placed in the patient's chart. Additionally, other treatment options including modalities, medications, and physical therapy were reviewed with the patient. After review of previous anaesthesic history and IV conscious sedation the patient was deemed safe to proceed with today?s procedure with IV conscious sedation as ASA class II designation. Safety time-out was performed to confirm p atient ID, procedure to be performed and site of procedure. IV sedation was accomplished with a combination of 2mg of Versed administered by the RN after DO order, titrated to patient comfort during the course of the procedure while the patient remained responsive to all verbal commands. In the prone position, following sterile prep and drape of the lumbar region, the L5/S1 translaminar space was identified fluoroscopically. The skin was anesthetized via a 25-gauge, 1.5-inch needle with 1% lidocaine solution. At this point, a 22-gauge short bevel spinal needle was atraumatically introduced and advanced under fluoroscopic guidance into the region of the L5/S1 translaminar space. Depth was confirmed on lateral view. Radiological data, including multiple fluoroscopic views of the lumbar spine, reveal a spinal needle at the L5/S1 translaminar space. Lateral views then show placement of the needle in the epidural space. Subsequent views show contrast material flowing superiorly and inferiorly in the epidural space. No vascular or intrathecal uptake is observed. At this point, using loss of resistance technique with saline and air, the epidural space was entered. This was confirmed following negative aspiration with injection of approximately 1.5cc of Isovue 200, showing excellent epidural flow without vascular or intrathecal uptake. At this point, 1 cc of 1% lidocaine solution combined with 3cc or 10mg of dexamethasone and 12mg of betamethasone was injected without incident. The patent tolerated the procedure without signs of symptoms of complications prior to transfer to the recovery area for further monitoring. The patient was then transferred to the recovery area where they were observed for an appropriate period of time after the injection. The patient reported a VAS score of 6 prior to the procedure and a post-procedure VAS of 0. POST OP INSTRUCTIONS The patient was provided a Pain Log to continue to record their response to the target-specific procedure prior to follow-up visit with their referring physician. Additionally, specific post-injection care instructions and a contact number to our office were provided if concerns arise regarding possible complications associated with the procedure are suspected.
--- NOTE | 2025-01-20 14:20 | EKG_ITS ---
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
--- NOTE | 2025-01-20 14:49 | PC.NURSE ---
Intraprocedure it was noted pt had slight ST elevation on the 3 lead CM. Pt denied any chest pain or any other complaints. Dr. Palacio made aware and EKG ordered in recovery. VSS, A&Ox4.
== END 2025-01-20 14:39 | disposition home or self-care (01) ==
PROVIDERS: PCP Family Medicine; Referring Provider Physical Medicine & Rehabilitation; Visit Provider Physical Medicine & Rehabilitation
DX: M51.17 Intervertebral disc disorders with radiculopathy, lumbosacral region (principal); M48.07 Spinal stenosis, lumbosacral region
CPT/HCPCS: 62323; 93005; 99152; J0702; J1100; J2250; J3490

== ENCOUNTER → 2025-05-13 15:41 | Outpatient (CLI) | payer OTHER, SELFPAY ==
--- NOTE | 2025-05-13 15:52 | DI.MRI.S_ITS ---
PROCEDURE: MR LUMBAR SPINE WO CON INDICATIONS: Progressive low back pain TECHNIQUE: Noncontrast sagittal T1 spin echo and T2 fast echo, sagittal STIR, and T2 fast spin echo through the lumbar spine. In cases with scoliosis, additional coronal T2 fast spin echo may be performed. COMPARISON: [facility], MR, MR LUMBAR SPINE WO CON, 02/28/2022, 10:46. FINDINGS: Image quality: Excellent. Alignment and Curvature: There is normal bony alignment. Bone Marrow: Marrow is of normal overall signal. No acute vertebral body compression fractures. Spinal Cord: Conus medullaris terminates at the T12 level. Visualized cord demonstrates normal signal and size. Paraspinous Soft Tissues: No paravertebral masses. T12-L1: Normal appearance. L1-L2: Normal appearance. L2-L3: There is mild disc bulge as well as bilateral facet arthropathy, without spinal stenosis L3-L4: There is mild bilateral facet arthropathy as well as disc bulge, with mild bilateral foraminal narrowing L4-L5: There is a disc bulge with a left posterior annular fissure measuring 1 cm in length. There is also bilateral facet arthropathy and ligamentum flavum thickening. There is mild central canal narrowing as well as moderate left foraminal stenosis and [id number] right foraminal stenosis, also with mild bilateral lateral recess stenosis L5-S1: Bilateral facet arthropathy, without spinal stenosis. IMPRESSION: 1. Degenerative changes as above, essentially stable compared to prior study. 2. No new disc extrusion or acute osseous lesions seen. Dictated by: Jules Sage M.D. on 05/14/2025 at 21:00 Approved by: Jules Sage M.D. on 05/14/2025 at 21:08
== END ==
PROVIDERS: PCP Family Medicine; Referring Provider Physical Medicine & Rehabilitation; Visit Provider Physical Medicine & Rehabilitation
DX: M47.816 Spondylosis without myelopathy or radiculopathy, lumbar region (principal); M47.817 Spondylosis without myelopathy or radiculopathy, lumbosacral region
CPT/HCPCS: 72148

== ENCOUNTER 2025-05-19 10:47 | Outpatient (CLI) | payer OTHER, SELFPAY ==
[2025-05-19] VITALS (13 sets, daily range): BP systolic 136–154; BP diastolic 64–92; PULSE 66–84; RESP 9–16; TEMP 36.4; O2SAT 99–100
[2025-05-19] MEDS: MIDAZOLAM 5 MG/5 ML VIAL 3 MG IV (12:20)
[2025-05-19] MEDS: fentaNYL 100 MCG/2 ML INJ 50 MCG IV (12:25)
[2025-05-19] MEDS: BUPIVACAINE 0.5% (PF) 10 ML VIAL 5 ML INJ (12:32)
[2025-05-19] MEDS: LIDOCAINE 1% 20 ML 5 ML INJ (12:32)
[2025-05-19] MEDS: MIDAZOLAM 5 MG/5 ML VIAL 1 MG IV (12:41)
--- NOTE | 2025-05-19 13:01 | P.PCN_ITS ---
Date/Time/Diagnoses Date of procedure: 05/19/25 Time of procedure: 13:01 Pre-procedure diagnosis: 1. RECALCITRANT FACET ARTHROPATHY Post-procedure diagnosis: same Procedure Notes Procedure: 1. BILATERAL L4 AND L5 MEDIAL BRANCH RADIOFREQUENCY NEUROTOMY AND S1 DORSAL RAMUS BRANCH RADIOFREQUENCY NEUROTOMY Indications: Johnson is referred by Dr. Ordoñez for treatment of facet arthropathy. Physician: Marcus Palacio Total Fluoroscopy time (seconds): 24 Total sedation minutes: 36 Complications: none Procedure in detail & Post-procedure care: DESCRIPTION OF PROCEDURE Bilateral L4 and L5 medial branch radiofrequency neurotomy and bilateral S1 dorsal ramus radiofrequency neurotomy under fluoroscopy with conscious sedation. The patient is well known to this clinic having undergone previous facet injections with good but temporary relief. The patient has experienced appropriate, concordant relief with previous facet and median branch blocks but the patient's pain has been recalcitrant to further conservative measures. Therefore, based upon the patient's relief and persistent symptoms, the patient is considered an appropriate candidate for facet rhizotomy. All of the patient's questions regarding the risks versus benefits of the procedure, including, but not limited to, bleeding, infection, temporary as well as lasting nerve injury, paralysis, stroke, and , as well treatment alternatives were answered to satisfaction. After obtaining informed consent, denial of pertinent drug allergies, as well as being made aware of the potential risks of bleeding, infection, spinal cord trauma, paralysis, temporary and permanent nerve damage, seizure, stroke, and possible , the patient was brought to the fluoroscopy suite and positioned prone on the fluoroscopy table. The lumbar region was prepped in usual sterile fashion and covered with a fenestrated drape in the usual sterile fashion. Appropriate monitors applied including pulse oximeter, pulse, and blood pressure for regular monitoring throughout the procedure. After review of previous anaesthesic history and IV conscious sedation the patient was deemed safe to proceed with today's procedure with IV conscious sedation as ASA class II designation. Safety time-out was performed to confirm patient ID, procedure to be performed and site of procedure. IV sedation was accomplished with a combination of 4mg of Versed and 50mcg of Fentanyl was administered by the RN after DO order, titrated to patient comfort during the course of the procedure while the patient remained responsive to all verbal commands. After local infiltration using 1% lidocaine, under fluoroscopic guidance, a 10- cm RF insulated needle with a 10-mm active tip was positioned parallel to the junction of the right sacral ala and the superior articulating process where the S1 dorsal ramus resides. Needle placement was confirmed with motor stimulation of .5v on the right which produced local stimulation without radicular component. The stimulation was then increased to 2v with, once again, only local multifidus stimulation without radicular component. The needle was then removed and the identical procedure was performed along the length of the right L5 medial branch with motor stimulation at .7v on the right. The identical procedure was once again performed along the length of the right L4 medial branch with motor stimulation of .5v on the right. The medial branches were then anesthetised with 0.5% Marcaine. This was then followed by two discreet lesions performed at 80 degrees Celsius for 90 seconds each. The identical procedure was repeated on the left. The patient tolerated the procedure well without signs or symptoms of complications prior to transfer to the recovery area continued monitoring without incident. The patient was then transferred to the recovery area where they were observed for an appropriate period of time after the injection. The patient reported a VAS score of 9 prior to the procedure and a post-procedure VAS of 0. POST OP INSTRUCTIONS The patient was provided a Pain Log to continue to record the patient's response to the target-specific procedure prior to the patient's follow-up visit with the referring physician. Additionally, specific post-injection care instructions and a contact number to our office were provided if concerns arise regarding possible complications associated with the procedure are suspected.
== END 2025-05-19 13:25 | disposition home or self-care (01) ==
PROVIDERS: PCP Family Medicine; Referring Provider Family Medicine; Visit Provider Physical Medicine & Rehabilitation
DX: M47.816 Spondylosis without myelopathy or radiculopathy, lumbar region (principal); M47.817 Spondylosis without myelopathy or radiculopathy, lumbosacral region
CPT/HCPCS: 64635; 64636; 99152; 99153; J2250; J3010